=== PATIENT | female | born 1935 | race Caucasian/White ===

== ENCOUNTER 2020-11-06 15:31 | Emergency (ER) | payer OTHER, MEDICAID ==
[~2020-11-06] VITALS: Ht 149.9 cm; Wt 61.2 kg
[2020-11-06 15:34] VITALS: BP_SYST 127
--- NOTE | 2020-11-06 15:34 | NUR ---
Placed in room 2 . Placed on property assessment monitor, blood pressure machine and pulse oximeter. To gown for exam. Side rails up.
--- NOTE | 2020-11-06 15:42 | NUR ---
PT BIBA FROM HOME AFTER TAKING AN UNPRESCRIBD SOMA (1 PILL) GIVEN BY DTR FOR GASTRIC DISCOMFORT. PT INFORMED ABOUT SOME MEDICATION AND ITS SIDE EFFECTS, INFORMED TO NEVER TAKE ANYONE ELSE'S MEDICATION. PT AAOX3, IN NAD. RESP EVEN AND UNLABORED, B[place]KIN[place] SPEAKING, STATES " I FEEL GREAT". DENIES ANY SOB OR CPM DENIES ANY N/V/D. SKIN W/D/I. PT MADE COMFORTABLE IN BED, INFORMED TO NOT GET OUT OF BED WITHOUT ASSISTANCE. SAFETY PRECAUTIONS IN PLACE.
--- NOTE | 2020-11-06 16:36 | NUR ---
ROAD TEST DONE AND PT WALKED WELL WITH STEADY GAIT WITH STANDBY ASSIST.
--- NOTE | 2020-11-06 17:09 | NUR ---
Patient given written and verbal discharge instructions and verbalizes understanding. ER MD discussed with patient the results and treatment provided. Patient in stable condition. ID arm band removed. IV catheter removed intact and dressing applied, no active bleeding. Patient educated on pain management and to follow up with PMD. Pain Scale . Opportunity for questions provided and answered.
[2020-11-06 17:12] VITALS: BP_SYST 127
== END 2020-11-06 17:09 | disposition home or self-care (01) ==
LOC: SED 15:40
DX: T42.8X1A Poisoning by antiparkinsonism drugs and other central muscle-tone depressants, accidental (unintentional), initial encounter (principal); Y92.89 Other specified places as the place of occurrence of the external cause
CPT/HCPCS: 99283